=== PATIENT | female | born 1965 | race Two or more races ===

== ENCOUNTER 2020-04-13 23:40 | Emergency (ER) | payer BC ==
[~2020-04-13] VITALS: Ht 172.7 cm; Wt 81.6 kg
[2020-04-13] MEDS ORDERED: ALBUTEROL SULF8.5 G1 INH (23:55)
[2020-04-14] VITALS: BP 135/73
--- NOTE | 2020-04-14 00:07 | NUR ---
ED Nurse Note: pt ambulated into ed from home [place] right leg pain with burning sensation located primarily at back of knee and radiates to upper inner right thigh. Pt states that she was doing laundry when she noticied the pain earlier this afternoon and stated that pain worsened after taking a shower. Pt aao x 4, VSS no ss of distress noted. Will continue to monitor. Awaiting ERMD at bedside. Awaiting further orders.
[2020-04-14] MEDS ORDERED: Aspirin Baby 81mg ORAL ONE (00:15)
--- NOTE | 2020-04-14 00:15 | NUR ---
ED Nurse Note: ERMD at bedside.
--- NOTE | 2020-04-14 01:00 | NUR ---
ED Nurse Note: pt resting in bed, VSS no ss of distress noted. will continue to monitor.
--- NOTE | 2020-04-14 01:44 | Emergency Room Report ---
History of Present Illness General Chief Complaint: Pain Present Illness HPI 55-year-old chronic everyday smoker but otherwise no relevant past medical history here with right posterior knee pain and swelling. Patient says that she began to notice the pain and swelling in her right knee approximately 6 hours prior to arrival to the emergency department. Denies any history of trauma. No focal numbness or weakness. Has never had this before. No recent long car rides or long plane rides. No fevers, chills, chest pain, palpitations , cough, shortness of breath, back pain, abdominal pain, nausea, vomiting, diarrhea, dysuria. Allergies: Coded Allergies: No Known Allergies (Unverified , 04/13/20) COVID-19 Screening Contact w/high risk pt: No Experienced COVID-19 symptoms?: No COVID-19 Testing performed [facility]: Yes - september 2019 COVID-19 Screening: Negative COVID-19 COVID-19 Testing Source: [facility] Patient History Last Menstrual Period: n/a Nursing Documentation-[facility] Hx Asthma: Yes - allergic asthma Review of Systems All Other Systems: negative except mentioned in HPI Physical Exam Vital Signs Date Time Temp Pulse Resp B/P (MAP) Pulse Ox O2 Delivery O2 Flow Rate FiO2 04/13/20 23:50 98.1 74 18 135/73 (93) 95 Room Air Sp02 EP Interpretation: reviewed, normal General Appearance: no apparent distress, alert, GCS 15, non-toxic Head: normocephalic, atraumatic Eyes: bilateral eye normal inspection, bilateral eye PERRL ENT: hearing grossly normal, normal pharynx, no angioedema, normal voice Neck: full range of motion, supple/symm/no masses Respiratory: chest non-tender, lungs clear, normal breath sounds, speaking full sentences Cardiovascular #1: regular rate, rhythm, no edema Cardiovascular #2: 2+ carotid (R), 2+ carotid (L), 2+ radial (R), 2+ radial (L) , 2+ dorsalis pedis (R), 2+ dorsalis pedis (L) Gastrointestinal: normal bowel sounds, non tender, soft, non-distended, no guarding, no rebound Rectal: deferred Genitourinary: normal inspection, no CVA tenderness Musculoskeletal: back normal, normal range of motion, calf tenderness, gait/ station normal, other - Subjective tenderness on palpation of the popliteal fossa of the right lower extremity. Negative Homans sign. Negative straight leg raise test. No unequal lower extremity edema Neurologic: alert, motor strength/tone normal, oriented x3, sensory intact, responsive, speech normal Psychiatric: judgement/insight normal, memory normal, mood/affect normal, no suicidal/homicidal ideation Lymphatic: no adenopathy Medical Decision Making Diagnostic Impression: Primary Impression: Leg pain ER Course 65 bpm EKG: EKG: NSR, no ischemia, intervals WNL. No ectopy Rhythm strip: patient monitored for arrhythmias - no malignant dysrhythmias, runs of PVCs, nor pauses noted Ultrasound: No evidence of deep venous thrombosis 55-year-old female here with pain in the right posterior fossa. Patient was hemodynamically stable in the emergency department. She had a largely normal physical examination aside from some subjective pain on palpation of the right popliteal fossa and just proximal to this region. She did not have any obvious leg swelling. She is a smoker but does not have any other risk factors for DVT. Ultrasound for DVT was negative. She was ambulatory throughout the emergency department without any difficulty. She will follow-up with her primary care provider. Discharged in stable condition. Last Vital Signs Date Time Temp Pulse Resp B/P (MAP) Pulse Ox O2 Delivery O2 Flow Rate FiO2 04/14/20 00:00 98.1 75 18 135/73 95 Room Air Scripts Ibuprofen* (MOTRIN*) 600 Mg Tablet 600 MG ORAL FOUR TIMES A DAY, #30 TAB 0 Refills Prov: Ham Hagen M.D. 04/14/20 Referrals: NOT CHOSEN [facility]/,REFERRING (PCP) Ham Hagen M.D. Apr 14, 2020 01:44
--- NOTE | 2020-04-14 02:12 | NUR ---
ED Nurse Note: US at bedside
[2020-04-14] MEDS ORDERED: IBUPROFEN600 M1 ORAL (02:22)
[2020-04-14 02:30] VITALS: BP 129/72
[2020-04-14 02:36] VITALS: BP 132/76
--- NOTE | 2020-04-14 02:36 | NUR ---
ER DISCHARGE NOTE: Patient is cleared to be discharged home per ERMD, pt is aox4,98% on room air, with stable vital signs. pt was given dc and prescription instructions, pt was able to verbalize understanding, pt id band and iv site removed without complications. pt is able to ambulate with steady gait. pt took all belongings.
--- NOTE | 2020-04-16 11:26 | Diagnostic Imaging Report ---
EXAM: ULTRASOUND Venous Duplex Lower Ext Uni CLINICAL HISTORY: Leg pain and edema. COMPARISON: None TECHNIQUE: Doppler examination include grayscale images obtained with and without compression, and color and spectral doppler analysis. FINDINGS: Doppler examination shows normal spontaneity, phasicity, compressibility in the right lower extremity. There is no thrombus identified by grayscale. Normal color and spectral flow is identified. There is no evidence of valvular incompetency or insufficiency. IMPRESSION: UNREMARKABLE VENOUS DUPLEX.
--- NOTE | 2020-04-16 21:48 | Cardiology Report ---
ADDENDUM APPROVED REPORT EKG Measurement Heart [id number] <Conclusion> Normal sinus rhythm with PACs Normal ECG
== END 2020-04-14 02:36 | disposition home or self-care (01) ==
LOC: EMR 04-14 00:31
DX: M79.604 Pain in right leg (principal)
CPT/HCPCS: 93005; 93971; 99284